=== PATIENT | male | born 1980 | race Caucasian/White ===

== ENCOUNTER 2018-09-27 11:00 | Emergency (ER) | payer OTHER ==
[~2018-09-27] VITALS: Ht 180.3 cm; Wt 77.1 kg
[~2018-09-27 11:00] MED LIST: ACETAMINOPHEN; ALBU.083IS INH; ALBU90I INH; ALBU90OI; ALBU90OI INH; AZIT250 PO; AZIT500; AZIT500 PO; BENZ100A PO; BUTASPCAF PO; CARB200 PO; CEFU50SU; CEFU50SU PO; CEPH500 PO; CIPR500; CIPR500 PO; CLAR500 PO; CLIN150; CLIN150 PO; CLIN300; CLIN300 PO; CODGUAEL PO; CRUTCH4 USE; CYCL10 PO; DIPH50 PO; DOC250 PO; DOXY100 PO; ERYT333ERA PO; ERYT500 PO; FAMO20 PO; FEXPSEER PO; FLUT.05NI; GUAI600T33 PO; GUAPHELA PO; HYDACE10B PO; HYDACE5 PO; HYDACE7.5 PO; HYDCOR2.5C PR; HYDGUAL120 PO; HYDHCL25 PO; IBUHYD PO; IBUP200; IBUP400; IBUP600 PO; IBUP800; IBUP800 PO; IBUPROFEN; KETO10 PO; LORA10ER PO; MAGCIT300 PO; METPRE4DP PO; MOMENI; NAPR500 PO; NAPR550 PO; NICO21TP TOP; NYST100SU MT; OMEP20ER PO; OMEPRAZOLE MAGN20 MG PO; ONDA4ODT MM; OXYACE5T PO; OXYACE7.5T PO; OXYM.05NI; PANT40 PO; PRAHYD1AE TOP; PRED10 PO; PRED20 PO; PROACE100 PO; PROCODE120 PO; PROM25 PO; PROM50S PR; PROM6.25SY PO; PSECHLCR PO; Prilosec Otc20 MG PO; RANI150 PO; RXCEPH500 PO; RXCLIN PO; RXCYCL10 PO; RXHYDACE PO; RXNAPNA550 PO; RXONDA4ODT MM; RXOXYACE PO; RXPRED10 PO; RXPROACE PO; RXPROCODSY PO; RXPROM25 PO; RXSULTRIDS PO; RXTRAM50 PO; Ranitidine HCl300 M1 PO; Robaxin500 MG PO; SULTRIDS PO; TAMS.4ER PO; TRAM50 PO; TYLENOL COUGH & COLD; Vibramycin100 MG PO; Zantac150 MG PO; Zithromax250 MG PO; Zofran Odt4 MG SL
[2018-09-27] MEDS ORDERED: Naprosyn500 MG PO (11:28)
[2018-09-27] MEDS ORDERED: Cleocin HCl300 MG PO (11:28)
== END 2018-09-27 11:32 | disposition home or self-care (01) ==
LOC: ER 11:00
DX: K04.7 Periapical abscess without sinus (principal); K02.9 Dental caries, unspecified; Z88.0 Allergy status to penicillin; Z88.5 Allergy status to narcotic agent; Z91.030 Bee allergy status; Z87.891 Personal history of nicotine dependence
CPT/HCPCS: 99282

== ENCOUNTER 2018-09-27 22:59 | Emergency (ER) | payer OTHER ==
[~2018-09-27] VITALS: Ht 180.3 cm; Wt 77.1 kg
[~2018-09-27 22:59] MED LIST changes: +Cleocin HCl300 MG PO; +Naprosyn500 MG PO
== END 2018-09-28 00:45 | disposition home or self-care (01) ==
LOC: ER 22:59
DX: K02.9 Dental caries, unspecified (principal); Z91.030 Bee allergy status; Z88.0 Allergy status to penicillin; Z88.5 Allergy status to narcotic agent; Z79.899 Other long term (current) drug therapy; G43.909 Migraine, unspecified, not intractable, without status migrainosus
CPT/HCPCS: 99282

== ENCOUNTER 2019-02-27 00:35 | Emergency (ER) | payer OTHER ==
[~2019-02-27] VITALS: Ht 180.3 cm; Wt 86.2 kg
[2019-02-27] MEDS ORDERED: Augmentin 875-1 EACH PO (03:53)
[2019-02-27] MEDS ORDERED: AZIT250 PO (03:53)
[2019-02-27] MEDS ORDERED: BENZ100A PO (04:32)
== END 2019-02-27 05:33 | disposition home or self-care (01) ==
LOC: ER 00:35
DX: J02.9 Acute pharyngitis, unspecified (principal); J34.89 Other specified disorders of nose and nasal sinuses; Z91.030 Bee allergy status; Z88.0 Allergy status to penicillin; Z88.5 Allergy status to narcotic agent; Z79.899 Other long term (current) drug therapy; G43.909 Migraine, unspecified, not intractable, without status migrainosus; Z87.891 Personal history of nicotine dependence
CPT/HCPCS: 71046; 87081; 87430; 99283-25; J1885

== ENCOUNTER → 2019-09-01 | Outpatient (CLI) | payer OTHER ==
[~2019-09-01] MED LIST changes: +Augmentin 875-1 EACH PO
== END ==
LOC: LAB EV 17:00 → LAB SHORT 17:00
PROVIDERS: Emergency Medicine
DX: K21.9 Gastro-esophageal reflux disease without esophagitis (principal)
CPT/HCPCS: 86677

== ENCOUNTER 2021-06-25 20:26 | Emergency (ER) | payer OTHER ==
[~2021-06-25] VITALS: Ht 180.3 cm; Wt 90.7 kg
[2021-06-25 20:57] LABS: BASOPHILS ABSOLUTE AUTO 0.04 K/mm3 (0.00-0.23); BASOPHILS PERCENT AUTO 0 % (0-2); EOSINOPHILS ABSOLUTE AUTO 0.65 K/mm3 (0.00-0.68); EOSINOPHILS PERCENT AUTO 7 % (0-6); Hematocrit 50.8 % (37.0-53.0); Hemoglobin 17.3 g/dL (13.5-17.5); IMMATURE GRAN ABSOLUTE AUTO 0.03 K/mm3 (0.00-0.10); IMMATURE GRAN PERCENT AUTO 0 % (0-1); LYMPHOCYTES ABSOLUTE AUTO 2.62 K/mm3 (0.84-5.20); LYMPHOCYTES PERCENT AUTO 28 % (21-46); MONOCYTES ABSOLUTE AUTO 0.75 K/mm3 (0.16-1.47); MONOCYTES PERCENT AUTO 8 % (4-13); Mean Corpuscular HGB 29.2 pg (26.0-34.0); Mean Corpuscular HGB Conc 34.1 g/dL (31.5-36.5); Mean Corpuscular Volume 86 fL (80-100); Mean Platelet Volume 10.7 fL (9.1-12.4); NEUTROPHILS ABSOLUTE AUTO 5.34 K/mm3 (1.96-9.15); NEUTROPHILS PERCENT AUTO 57 % (41-73); Platelet Count 279 K/mm3 (150-400); RDW Coefficient Variation 12.2 % (11.7-14.2); RDW Standard Deviation 38.6 fL (35.1-46.3); Red Blood Cell Count 5.93 M/mm3 (4.30-5.90); White Blood Cell Count 9.43 K/mm3 (4.00-11.30)
[2021-06-25 21:39] LABS: Alanine Aminotransfer (ALT/SGP 51 U/L (12-78); Albumin, Blood 4.1 g/dL (3.4-5.0); Alk Phos 83 U/L (50-136); Anion Gap 7 mmol/L (6-16); Aspartate Aminotrans (AST/SGOT 29 U/L (12-37); Bilirubin, Total 0.3 mg/dL (0.1-1.0); Blood Urea Nitrogen 15 mg/dL (8-24); CO2, Blood 24 mmol/L (21-32); Calcium, Blood 9.7 mg/dL (8.5-10.1); Chloride, Blood 107 mmol/L (98-108); Creatinine, Blood 0.88 mg/dL (0.60-1.20); Globulin, Blood 4.1 g/dL (2.2-4.0); Glomerular Filtration Rate >60 (60-); Glucose, Blood 122 mg/dL (70-99); Potassium, Blood 3.7 mmol/L (3.5-5.5); Sodium, Blood 138 mmol/L (136-145); Total Protein, Blood 8.2 g/dL (6.4-8.2); Troponin I <0.015 ng/mL (0.000-0.040)
[2021-06-25] MEDS ORDERED: METO25ER PO (22:15)
[2021-06-25] MEDS ORDERED: ESOM20 PO (22:16)
[2021-06-25] MEDS ORDERED: NASONEX17 G1 (22:16)
== END 2021-06-25 22:25 | disposition home or self-care (01) ==
LOC: ER 20:26
PROVIDERS: Physician Assistant
DX: R00.2 Palpitations (principal); R00.0 Tachycardia, unspecified; R07.89 Other chest pain; R06.02 Shortness of breath; Z88.0 Allergy status to penicillin; Z91.030 Bee allergy status; Z88.6 Allergy status to analgesic agent
CPT/HCPCS: 36415; 71045; 80053; 83735; 84443; 84484; 85025; 93005; 93010; 99285-25

== ENCOUNTER → 2022-05-05 | Outpatient (CLI) | payer OTHER ==
[~2022-05-05] MED LIST changes: +ALPR1 PO; +ESOM20 PO; +METO25ER PO; +NASONEX17 G1
[2022-05-05 16:31] LABS: BASOPHILS ABSOLUTE AUTO 0.04 K/mm3 (0.00-0.23); BASOPHILS PERCENT AUTO 1 % (0-2); EOSINOPHILS ABSOLUTE AUTO 0.38 K/mm3 (0.00-0.68); EOSINOPHILS PERCENT AUTO 5 % (0-6); Hematocrit 48.9 % (37.0-53.0); IMMATURE GRAN ABSOLUTE AUTO 0.04 K/mm3 (0.00-0.10); IMMATURE GRAN PERCENT AUTO 1 % (0-1); LYMPHOCYTES ABSOLUTE AUTO 1.69 K/mm3 (0.84-5.20); LYMPHOCYTES PERCENT AUTO 21 % (21-46); MONOCYTES ABSOLUTE AUTO 0.66 K/mm3 (0.16-1.47); MONOCYTES PERCENT AUTO 8 % (4-13); Mean Corpuscular HGB 30.4 pg (26.0-34.0); Mean Corpuscular HGB Conc 34.8 g/dL (31.5-36.5); Mean Corpuscular Volume 87 fL (80-100); Mean Platelet Volume 10.8 fL (9.1-12.4); NEUTROPHILS ABSOLUTE AUTO 5.38 K/mm3 (1.96-9.15); NEUTROPHILS PERCENT AUTO 66 % (41-73); Platelet Count 239 K/mm3 (150-400); RDW Coefficient Variation 12.8 % (11.7-14.2); RDW Standard Deviation 40.6 fL (35.1-46.3); White Blood Cell Count 8.19 K/mm3 (4.00-11.30)
[2022-05-05 16:44] LABS: Albumin, Blood 3.7 g/dL (3.4-5.0); Albumin/Globulin Ratio 0.9 (0.8-1.8); Bilirubin, Total 0.3 mg/dL (0.1-1.0); Bun/Creatinine Ratio 12.5 (12.0-20.0); Calcium, Blood 9.1 mg/dL (8.5-10.1); Creatinine, Blood 0.96 mg/dL (0.60-1.20); Globulin, Blood 3.9 g/dL (2.2-4.0); Potassium, Blood 3.7 mmol/L (3.5-5.5); Total Protein, Blood 7.6 g/dL (6.4-8.2)
== END ==
LOC: LAB 16:27 → LAB SHORT 16:27
PROVIDERS: General Practice
DX: K92.89 Other specified diseases of the digestive system (principal)
CPT/HCPCS: 80053; 82550; 84484; 85025

== ENCOUNTER 2023-06-09 16:42 | Inpatient (IN) | payer OTHER ==
[~2023-06-09] VITALS: Ht 180.3 cm; Wt 94.8 kg
[2023-06-09] VITALS (20 sets, daily range): BP systolic 121–150; BP diastolic 79–98
[2023-06-09 17:00] LABS: Calcium, Ionized (POC) 1.15 mmol/L (1.10-1.46); Chloride (POC) 102 mmol/L (98-108); Glucose (ISTAT POC) 132 mg/dL (70-99); Potassium (POC) 3.1 mmol/L (3.5-5.5); Sodium (POC) 140 mmol/L (135-148); Total CO2 (POC) 28 mmol/L (21-32)
[2023-06-09 17:05] LABS: BASOPHILS ABSOLUTE AUTO 0.07 K/mm3 (0.00-0.23); BASOPHILS PERCENT AUTO 1 % (0-2); EOSINOPHILS ABSOLUTE AUTO 0.63 K/mm3 (0.00-0.68); EOSINOPHILS PERCENT AUTO 5 % (0-6); Hematocrit 45.3 % (37.0-53.0); Hemoglobin 15.7 g/dL (13.5-17.5); IMMATURE GRAN ABSOLUTE AUTO 0.11 K/mm3 (0.00-0.10); IMMATURE GRAN PERCENT AUTO 1 % (0-1); LYMPHOCYTES ABSOLUTE AUTO 4.25 K/mm3 (0.84-5.20); LYMPHOCYTES PERCENT AUTO 34 % (21-46); MONOCYTES ABSOLUTE AUTO 1.04 K/mm3 (0.16-1.47); MONOCYTES PERCENT AUTO 8 % (4-13); Mean Corpuscular HGB 29.9 pg (26.0-34.0); Mean Corpuscular HGB Conc 34.7 g/dL (31.5-36.5); Mean Corpuscular Volume 86 fL (80-100); Mean Platelet Volume 10.1 fL (9.1-12.4); NEUTROPHILS PERCENT AUTO 52 % (41-73); Platelet Count 299 K/mm3 (150-400); RDW Coefficient Variation 12.5 % (11.7-14.2); RDW Standard Deviation 39.3 fL (35.1-46.3); Red Blood Cell Count 5.25 M/mm3 (4.30-5.90)
[2023-06-09 17:38] LABS: Albumin, Blood 3.9 g/dL (3.4-5.0); Albumin/Globulin Ratio 1.1 (0.8-1.8); Bilirubin, Total 0.3 mg/dL (0.1-1.0); Bun/Creatinine Ratio 15.1 (12.0-20.0); Calcium, Blood 9.1 mg/dL (8.5-10.1); Creatinine, Blood 0.93 mg/dL (0.60-1.20); Globulin, Blood 3.6 g/dL (2.2-4.0); Potassium, Blood 3.1 mmol/L (3.5-5.5); Total Protein, Blood 7.5 g/dL (6.4-8.2)
[2023-06-09] MEDS ORDERED: Prednisone10 MG PO (19:34)
[2023-06-09] MEDS ORDERED: DIAZ5 PO (19:38)
[2023-06-09 19:52] LABS: International Normalized Ratio 0.97; Prothrombin Time Results 10.2 Sec (9.7-11.5)
--- NOTE | 2023-06-09 21:06 | NUR ---
ARRIVAL TO ICU: PT ARRIVED TO ICU FROM [facility] AT 1843 VIA ICU BED. PT ALERT AND ORIENTED TO TIME, PERSON, PLACE AND SITUATION. ABLE TO ANSWER QUESTIONS AND MAKE NEEDS KNOWN. BREATH SOUNDS CLEAR IN ALL LOBES. NO C/O SOB. CARDIAC MONITORING SHOWS SINUS RHYTHM WITH RATE IN THE 80'S-90'S. SBP 140'S. DENIES CHEST PAIN OR PRESSURE. TR BAND IN PLACE IN RIGHT WRIST CURRENTLY WITH 11 ML'S AIR IN [place]. NO SIGNS OF BLEEDING OR OOZING AT THIS TIME. ARM BOARD IN PLACE WITH REMINDERS TO NOT USE ARM. NORMAL SALINE INFUSING IN RIGHT FOREARM PIV AT 200 ML/HR. PIV TO LAC SALINE LOCKED. ABLE TO VOID IN URINAL INDEPENDENTLY, YELLOW URINE. FAMILY AT BEDISDE AND UPDATED TO PLAN OF CARE. POTASSIUM 3.1, CALL PLACED TO DR. PEDROZA WITH ORDERS TO REPLACE PO.
[2023-06-10] VITALS (36 sets, daily range): BP systolic 108–159; BP diastolic 66–116
--- NOTE | 2023-06-10 01:13 | NUR ---
TR BAND REMOVAL: STARTED DEFLATING BAND AT 2128- 2ML REMOVED. 2318-2ML REMOVED, 2148- 2ML REMOVED, 2158-2ML REMOVED, 2208-2ML REMOVED, 2218- 1ML REMOVED. BAND LEFT IN PLACE UNTIL 2318. REMOVED BAND AND PLACED TEGADERM WITH NEW ARMBOARD. NO BLEEDING, OOZING OR SIGN OF HEMATOMA. PT EDUCATED ON NOT USING HIS RIGHT WRIST.
[2023-06-10 03:20] LABS: BASOPHILS ABSOLUTE AUTO 0.03 K/mm3 (0.00-0.23); BASOPHILS PERCENT AUTO 0 % (0-2); EOSINOPHILS ABSOLUTE AUTO 0.03 K/mm3 (0.00-0.68); EOSINOPHILS PERCENT AUTO 0 % (0-6); Hematocrit 41.9 % (37.0-53.0); Hemoglobin 14.7 g/dL (13.5-17.5); IMMATURE GRAN ABSOLUTE AUTO 0.09 K/mm3 (0.00-0.10); IMMATURE GRAN PERCENT AUTO 1 % (0-1); LYMPHOCYTES ABSOLUTE AUTO 1.01 K/mm3 (0.84-5.20); LYMPHOCYTES PERCENT AUTO 8 % (21-46); MONOCYTES ABSOLUTE AUTO 0.89 K/mm3 (0.16-1.47); MONOCYTES PERCENT AUTO 7 % (4-13); Mean Corpuscular HGB 29.9 pg (26.0-34.0); Mean Corpuscular HGB Conc 35.1 g/dL (31.5-36.5); Mean Corpuscular Volume 85 fL (80-100); Mean Platelet Volume 10.2 fL (9.1-12.4); NEUTROPHILS ABSOLUTE AUTO 10.59 K/mm3 (1.96-9.15); NEUTROPHILS PERCENT AUTO 84 % (41-73); Platelet Count 248 K/mm3 (150-400); RDW Coefficient Variation 12.5 % (11.7-14.2); RDW Standard Deviation 38.9 fL (35.1-46.3); Red Blood Cell Count 4.91 M/mm3 (4.30-5.90); White Blood Cell Count 12.64 K/mm3 (4.00-11.30)
[2023-06-10 03:51] LABS: Albumin, Blood 3.6 g/dL (3.4-5.0); Albumin/Globulin Ratio 1.1 (0.8-1.8); Bilirubin, Total 0.6 mg/dL (0.1-1.0); Bun/Creatinine Ratio 17.8 (12.0-20.0); Calcium, Blood 8.9 mg/dL (8.5-10.1); Creatinine, Blood 0.73 mg/dL (0.60-1.20); Globulin, Blood 3.3 g/dL (2.2-4.0); Magnesium, Blood 2.2 mg/dL (1.6-2.4); Potassium, Blood 4.3 mmol/L (3.5-5.5); Total Protein, Blood 6.9 g/dL (6.4-8.2)
--- NOTE | 2023-06-10 05:35 | NUR ---
SHIFT SUMMARY: PT REMAINS ALERT AND ORIENTED TO TIME, PERSON, PLACE AND SITUATION. PLEASANT, CALM AND COOPERATIVE WITH ALL CARE. LUNG SOUNDS CLEAR, SPO2 >95% ON RA. CARDIAC MONITORING SHOWS SINUS RHYTHM WITH RATE IN THE 70'S. SBP 140'S. DENIES CHEST PAIN OR PRESSURE. DOES STATE THAT HE FEELS LIKE HE HAS ACID REFLUX WHICH IS NOT A NEW FEELING. NO BM T/O THE SHIFT. ABLE TO VOID IN THE URINAL INDEPENDENTLY. PIV IN LEFT AND RIGHT FOREARM, SALINE LOCKED AT THIS TIME. REMAINS AT THE BEDSIDE T/O THE NIGHT. UPDATED TO PLAN OF CARE. ABLE TO TAKE PO MEDICATION T/O THE SHIFT WITH NO COMPLAINTS. RIGHT RADIAL SITE SHOWS NO SIGNS OF HEMATOMA OR BLEEDING. ARMBOARD IN PLACE.
--- NOTE | 2023-06-10 12:04 | NUR ---
ASSSUMED CARE RECEIVED REPORT FROM STUDENT RN LOUIE AND ASSUMED CARE OF PT AT APPROX 12:00. PT A&OX4, IND, TOLERATING PO, VOIDING, NO C/O PAIN, AND ON TELE. PT HAS ARMBOARD AND TEGADERM DRESSING IN PLACE ON R FA FROM [facility] [employer] [facility], C/D/I. REVIEWED AND AGREE W/ PREVIOUS SHIFT ASSESSMENT.
--- NOTE | 2023-06-10 12:53 | NUR ---
Pt transferred to medical floor at approximately 1145. All personal belongings sent upstairs with patient. VS stable at time of transfer. Report given to medical floor RN.
--- NOTE | 2023-06-10 17:20 | NUR ---
SHIFT SUMMARY PT A&OX4, AMB IND, TOLERATING PO, VOIDING, ON TELE, AND DENIES PAIN. PLAN FOR DISCHARGE TOMORROW. CALL LIGHT WITHIN REACH AND PT ABLE TO MAKE NEEDS KNOWN.
[2023-06-11 03:11] VITALS: BP 105/72
[2023-06-11 05:09] LABS: BASOPHILS ABSOLUTE AUTO 0.04 K/mm3 (0.00-0.23); BASOPHILS PERCENT AUTO 0 % (0-2); EOSINOPHILS ABSOLUTE AUTO 0.44 K/mm3 (0.00-0.68); EOSINOPHILS PERCENT AUTO 5 % (0-6); Hemoglobin 15.1 g/dL (13.5-17.5); IMMATURE GRAN ABSOLUTE AUTO 0.11 K/mm3 (0.00-0.10); IMMATURE GRAN PERCENT AUTO 1 % (0-1); LYMPHOCYTES ABSOLUTE AUTO 2.64 K/mm3 (0.84-5.20); LYMPHOCYTES PERCENT AUTO 27 % (21-46); MONOCYTES ABSOLUTE AUTO 0.75 K/mm3 (0.16-1.47); MONOCYTES PERCENT AUTO 8 % (4-13); Mean Corpuscular HGB 30.1 pg (26.0-34.0); Mean Corpuscular HGB Conc 34.3 g/dL (31.5-36.5); Mean Corpuscular Volume 88 fL (80-100); Mean Platelet Volume 10.3 fL (9.1-12.4); NEUTROPHILS ABSOLUTE AUTO 5.73 K/mm3 (1.96-9.15); NEUTROPHILS PERCENT AUTO 59 % (41-73); Platelet Count 256 K/mm3 (150-400); RDW Coefficient Variation 12.8 % (11.7-14.2); RDW Standard Deviation 41.1 fL (35.1-46.3); Red Blood Cell Count 5.01 M/mm3 (4.30-5.90); White Blood Cell Count 9.71 K/mm3 (4.00-11.30)
--- NOTE | 2023-06-11 05:31 | NUR ---
Shift Summary Pt AOx4, independent in the room. He took a shower tonight and did some walking, he states he did not experience any shortness of breath or dizyness. No chest pain or pressure t/o shift. On tele running SR at 80. Pt was a bit hypotensive at the start of shift, held Metoprolol. His last BP this am was a bit hypotensive at 105/72. Family stayed in the room overnight. Pt slept well t/o the night.
[2023-06-11 05:46] LABS: Alanine Aminotransfer (ALT/SGP 75 U/L (12-78); Albumin, Blood 3.6 g/dL (3.4-5.0); Albumin/Globulin Ratio 1.1 (0.8-1.8); Alk Phos 69 U/L (50-136); Anion Gap 3 mmol/L (6-16); Aspartate Aminotrans (AST/SGOT 126 U/L (12-37); Bilirubin, Total 0.6 mg/dL (0.1-1.0); Blood Urea Nitrogen 15 mg/dL (8-24); Bun/Creatinine Ratio 16.3 (12.0-20.0); CHOL/HDL RATIO 5.3; CO2, Blood 29 mmol/L (21-32); Calcium, Blood 8.9 mg/dL (8.5-10.1); Chloride, Blood 107 mmol/L (98-108); Cholesterol 223 mg/dL (50-200); Creatinine, Blood 0.92 mg/dL (0.60-1.20); Globulin, Blood 3.2 g/dL (2.2-4.0); Glomerular Filtration Rate 107 (60-); Glucose, Blood 103 mg/dL (70-99); HDL Cholesterol 42 mg/dL (>39); LDL/HDL RATIO 3.4; Low Density Lipoprotein Chol 141 mg/dL (0-110); Potassium, Blood 4.1 mmol/L (3.5-5.5); Sodium, Blood 139 mmol/L (136-145); Total Protein, Blood 6.8 g/dL (6.4-8.2); Triglycerides 201 mg/dL (30-160); Very Low Density Lipoprot Chol 40 mg/dL (6-32)
[2023-06-11 07:31] VITALS: BP 107/74
[2023-06-11] MEDS ORDERED: ASPI81CH PO (09:59)
[2023-06-11] MEDS ORDERED: ATORVASTATIN CA80 M1 PO (09:59)
[2023-06-11] MEDS ORDERED: METO50 PO (10:00)
[2023-06-11] MEDS ORDERED: BRILINTA90 M1 PO (10:00)
--- NOTE | 2023-06-11 11:32 | NUR ---
DISCHARGE NOTE PT DISCHARGED HOME AT APPROX 11:25. PT AND SPOUSE PROVIDED W/ VERBAL AND WRITTEN DISCHARGE INSTRUCTIONS AND REPORTED UNDERSTANDING. PT A&OX4, VSS, AMB IND, DENIED PAIN, TOLERATING PO, AND VOIDING. BELONGINGS WERE RETURNED AND PT ESCOURTED OUT VIA W/C BY GENE IBRAHIM.
--- NOTE | 2023-06-11 13:52 | NUR ---
[facility] CALLED AND SAID THAT PATIENT'S INSURANCE WOULD NOT COVER BRIL[place]TA AND ASKED IF PLAVIX COULD BE USED INSTEAD. DR BANG NOTIFIED AND ORDERS RECEIVED TO CALL IN PLAVIX 600 MG PO X1 TODAY AND THEN 75MG PO DAILY STARTING TOMORROW. WILL CALL INTO [facility].
[2023-06-11] MEDS ORDERED: CLOPIDOGREL300 M1 PO (14:47)
[2023-06-11] MEDS ORDERED: CLOP75 PO (14:47)
== END 2023-06-11 11:28 | disposition home or self-care (01) | DRG 322 ==
LOC: ER 16:42 → ICUE 16:57 → MEDS 06-10 11:59 → ENPENDDIS 06-11 10:13 → MEDS 06-11 11:28
PROVIDERS: Emergency Medicine; Internal Medicine Cardiovascular Disease; ADMIT Internal Medicine Interventional Cardiology
PROC: 027135Z Dilation of Coronary Artery, Two Arteries with Two Drug-eluting Intraluminal Devices, Percutaneous Approach (ICD-10-PCS; principal; 2023-06-09)
PROC: B2111ZZ Fluoroscopy of Multiple Coronary Arteries using Low Osmolar Contrast (ICD-10-PCS; 2023-06-09)
PROC: B24BYZZ Ultrasonography of Heart with Aorta using Other Contrast (ICD-10-PCS; 2023-06-10)
DX: I21.02 ST elevation (STEMI) myocardial infarction involving left anterior descending coronary artery (principal); I25.82 Chronic total occlusion of coronary artery; I25.10 Atherosclerotic heart disease of native coronary artery without angina pectoris; I10 Essential (primary) hypertension; E87.6 Hypokalemia; Z88.0 Allergy status to penicillin; Z88.5 Allergy status to narcotic agent
CPT/HCPCS: 36415; 71045; 76937; 80047; 80053; 80061; 83735; 84484; 85014; 85025; 85610; 85730; 93005; 93010; 93454; 99152; 99153; 99285-25; A9270; C1725; C1769; C1874; C1887; C1894; C8929; C9600; C9606; J1644; J2250; J3010; J3246; J7030; J7050; Q9957; Q9967

== ENCOUNTER 2023-07-18 13:56 | Observation (INO) | payer OTHER ==
[~2023-07-18] VITALS: Ht 180.3 cm; Wt 89.4 kg
[~2023-07-18 13:56] MED LIST changes: +ASPI81CH PO; +ATORVASTATIN CA80 M1 PO; +BRILINTA90 M1 PO; +CLOP75 PO; +CLOPIDOGREL300 M1 PO; +DIAZ5 PO; +METO50 PO; +Prednisone10 MG PO
[2023-07-18 14:34] LABS: BASOPHILS ABSOLUTE AUTO 0.05 K/mm3 (0.00-0.23); BASOPHILS PERCENT AUTO 1 % (0-2); EOSINOPHILS ABSOLUTE AUTO 0.67 K/mm3 (0.00-0.68); EOSINOPHILS PERCENT AUTO 11 % (0-6); Hematocrit 44.8 % (37.0-53.0); Hemoglobin 15.4 g/dL (13.5-17.5); IMMATURE GRAN ABSOLUTE AUTO 0.01 K/mm3 (0.00-0.10); IMMATURE GRAN PERCENT AUTO 0 % (0-1); LYMPHOCYTES PERCENT AUTO 32 % (21-46); MONOCYTES ABSOLUTE AUTO 0.67 K/mm3 (0.16-1.47); MONOCYTES PERCENT AUTO 11 % (4-13); Mean Corpuscular HGB 29.4 pg (26.0-34.0); Mean Corpuscular HGB Conc 34.4 g/dL (31.5-36.5); Mean Corpuscular Volume 86 fL (80-100); NEUTROPHILS ABSOLUTE AUTO 2.64 K/mm3 (1.96-9.15); NEUTROPHILS PERCENT AUTO 44 % (41-73); Platelet Count 200 K/mm3 (150-400); RDW Coefficient Variation 11.9 % (11.7-14.2); RDW Standard Deviation 37.7 fL (35.1-46.3); Red Blood Cell Count 5.23 M/mm3 (4.30-5.90); White Blood Cell Count 5.94 K/mm3 (4.00-11.30)
[2023-07-18 14:53] LABS: Albumin, Blood 4.3 g/dL (3.4-5.0); Albumin/Globulin Ratio 1.3 (0.8-1.8); Bilirubin, Total 0.8 mg/dL (0.1-1.0); Bun/Creatinine Ratio 13.1 (12.0-20.0); Calcium, Blood 9.3 mg/dL (8.5-10.1); Creatinine, Blood 0.84 mg/dL (0.60-1.20); Globulin, Blood 3.4 g/dL (2.2-4.0); Potassium, Blood 3.6 mmol/L (3.5-5.5); Total Protein, Blood 7.7 g/dL (6.4-8.2)
--- NOTE | 2023-07-18 17:41 | NUR ---
REPORT FROM [facility] ON THIS PATIENT. WILL WAIT FOR REPEAT TROPONIN PRIOR TO HIM COMING TO MED FLOOR.
[2023-07-18 18:27] VITALS: BP 141/87
[2023-07-18] MEDS ORDERED: METO25ER PO (18:30)
[2023-07-18] MEDS ORDERED: DIAZ5 PO (19:34)
[2023-07-18] MEDS ORDERED: OMEP20ER PO (19:35)
[2023-07-18] MEDS ORDERED: TICA90TA PO (19:36)
[2023-07-19 02:00] VITALS: BP 112/76
--- NOTE | 2023-07-19 06:40 | NUR ---
SHIFT PARESH, PT RESTING IN BED, PTS AT BEDSIDE. PT DENIES ANY CHEST ARM OR JAW PAIN. PT LEFT UNIT WITH EARLYIER LAST NOC. PT AND TOLD PT TO PLEASE NOT LEAVE UNIT PT HERE FOR CARDIAC ISSUES. PT AGREED. CALL LIGHT IN REACH.
[2023-07-19 07:23] VITALS: BP 125/77
== END 2023-07-19 12:11 | disposition home or self-care (01) ==
LOC: ER 13:56 → MEDS 13:57 → ENPENDDIS 07-19 11:03 → MEDS 07-19 12:11
PROVIDERS: Physician Assistant; ADMIT Internal Medicine
DX: R79.89 Other specified abnormal findings of blood chemistry (principal); I25.2 Old myocardial infarction; E78.5 Hyperlipidemia, unspecified; F41.9 Anxiety disorder, unspecified; J33.9 Nasal polyp, unspecified; R07.89 Other chest pain
CPT/HCPCS: 36415; 71045; 80053; 83690; 83735; 83880; 84484; 85025; 93005; 93010; A9270

== ENCOUNTER 2023-08-15 20:09 | Emergency (ER) | payer OTHER ==
[~2023-08-15] VITALS: Ht 180.3 cm; Wt 86.2 kg
[~2023-08-15 20:09] MED LIST changes: +TICA90TA PO
[2023-08-15 20:50] LABS: BASOPHILS ABSOLUTE AUTO 0.04 K/mm3 (0.00-0.23); BASOPHILS PERCENT AUTO 1 % (0-2); EOSINOPHILS ABSOLUTE AUTO 0.52 K/mm3 (0.00-0.68); EOSINOPHILS PERCENT AUTO 8 % (0-6); Hematocrit 41.8 % (37.0-53.0); Hemoglobin 14.5 g/dL (13.5-17.5); IMMATURE GRAN ABSOLUTE AUTO 0.01 K/mm3 (0.00-0.10); IMMATURE GRAN PERCENT AUTO 0 % (0-1); LYMPHOCYTES ABSOLUTE AUTO 1.99 K/mm3 (0.84-5.20); LYMPHOCYTES PERCENT AUTO 29 % (21-46); MONOCYTES ABSOLUTE AUTO 0.67 K/mm3 (0.16-1.47); MONOCYTES PERCENT AUTO 10 % (4-13); Mean Corpuscular HGB Conc 34.7 g/dL (31.5-36.5); Mean Corpuscular Volume 87 fL (80-100); Mean Platelet Volume 10.9 fL (9.1-12.4); NEUTROPHILS ABSOLUTE AUTO 3.63 K/mm3 (1.96-9.15); NEUTROPHILS PERCENT AUTO 53 % (41-73); Platelet Count 199 K/mm3 (150-400); RDW Coefficient Variation 12.1 % (11.7-14.2); RDW Standard Deviation 38.1 fL (35.1-46.3); Red Blood Cell Count 4.83 M/mm3 (4.30-5.90); White Blood Cell Count 6.86 K/mm3 (4.00-11.30)
[2023-08-15 21:14] LABS: Albumin, Blood 4.2 g/dL (3.4-5.0); Albumin/Globulin Ratio 1.2 (0.8-1.8); Bilirubin, Total 0.8 mg/dL (0.1-1.0); Bun/Creatinine Ratio 14.3 (12.0-20.0); Creatinine, Blood 0.84 mg/dL (0.60-1.20); Globulin, Blood 3.4 g/dL (2.2-4.0); Potassium, Blood 3.7 mmol/L (3.5-5.5); Total Protein, Blood 7.6 g/dL (6.4-8.2)
[2023-08-15 22:34] LABS: Thyroid Stimulating Hormone 2.37 uIU/mL (0.360-4.800)
[2023-08-15 23:00] VITALS: BP 125/81
== END 2023-08-15 23:10 | disposition home or self-care (01) ==
LOC: ER 20:09
PROVIDERS: Physician Assistant
DX: F41.9 Anxiety disorder, unspecified (principal); I10 Essential (primary) hypertension; G43.909 Migraine, unspecified, not intractable, without status migrainosus; I25.2 Old myocardial infarction; F17.210 Nicotine dependence, cigarettes, uncomplicated; Z79.82 Long term (current) use of aspirin; Z79.02 Long term (current) use of antithrombotics/antiplatelets; Z79.899 Other long term (current) drug therapy; Z88.0 Allergy status to penicillin; Z88.5 Allergy status to narcotic agent; Z91.030 Bee allergy status
CPT/HCPCS: 80053; 84443; 84484; 85025; 93005; 93010; 99285-25

== ENCOUNTER → 2024-08-14 | Outpatient (CLI) | payer OTHER | LOC: LAB 08:53 → LAB SHORT 08:53 | DX: J02.9 Acute pharyngitis, unspecified (principal) | CPT/HCPCS: 87081 ==

== ENCOUNTER 2024-12-12 23:14 | Emergency (ER) | payer OTHER ==
[~2024-12-12] VITALS: Ht 180.3 cm; Wt 90.7 kg
[2024-12-12 23:42] LABS: BASOPHILS ABSOLUTE AUTO 0.04 K/mm3 (0.00-0.23); BASOPHILS PERCENT AUTO 1 % (0-2); EOSINOPHILS ABSOLUTE AUTO 0.33 K/mm3 (0.00-0.68); EOSINOPHILS PERCENT AUTO 5 % (0-6); Hematocrit 44.5 % (37.0-53.0); IMMATURE GRAN ABSOLUTE AUTO 0.01 K/mm3 (0.00-0.10); IMMATURE GRAN PERCENT AUTO 0 % (0-1); LYMPHOCYTES ABSOLUTE AUTO 2.13 K/mm3 (0.84-5.20); LYMPHOCYTES PERCENT AUTO 30 % (21-46); MONOCYTES ABSOLUTE AUTO 0.77 K/mm3 (0.16-1.47); MONOCYTES PERCENT AUTO 11 % (4-13); Mean Corpuscular HGB 29.9 pg (26.0-34.0); Mean Corpuscular HGB Conc 33.7 g/dL (31.5-36.5); Mean Corpuscular Volume 89 fL (80-100); Mean Platelet Volume 10.7 fL (9.1-12.4); NEUTROPHILS ABSOLUTE AUTO 3.84 K/mm3 (1.96-9.15); NEUTROPHILS PERCENT AUTO 54 % (41-73); Platelet Count 214 K/mm3 (150-400); RDW Coefficient Variation 12.1 % (11.7-14.2); RDW Standard Deviation 39.3 fL (35.1-46.3); Red Blood Cell Count 5.02 M/mm3 (4.30-5.90); White Blood Cell Count 7.12 K/mm3 (4.00-11.30)
[2024-12-13 00:03] LABS: Albumin, Blood 4.1 g/dL (3.4-5.0); Albumin/Globulin Ratio 1.3 (0.8-1.8); Bilirubin, Total 0.4 mg/dL (0.1-1.0); Bun/Creatinine Ratio 17.2 (12.0-20.0); Calcium, Blood 8.8 mg/dL (8.5-10.1); Creatinine, Blood 0.87 mg/dL (0.60-1.20); Globulin, Blood 3.2 g/dL (2.2-4.0); Potassium, Blood 3.4 mmol/L (3.5-5.5); Total Protein, Blood 7.3 g/dL (6.4-8.2)
[2024-12-13 02:07] VITALS: BP 139/74
== END 2024-12-13 02:56 | disposition home or self-care (01) ==
LOC: ER 23:14
PROVIDERS: Emergency Medicine
DX: R07.89 Other chest pain (principal); F17.210 Nicotine dependence, cigarettes, uncomplicated; I10 Essential (primary) hypertension; E78.5 Hyperlipidemia, unspecified; K21.9 Gastro-esophageal reflux disease without esophagitis; Z91.038 Other insect allergy status; Z88.0 Allergy status to penicillin; Z88.5 Allergy status to narcotic agent; Z79.899 Other long term (current) drug therapy; Z79.890 Hormone replacement therapy; Z79.891 Long term (current) use of opiate analgesic; Z79.1 Long term (current) use of non-steroidal anti-inflammatories (NSAID); Z79.51 Long term (current) use of inhaled steroids; Z79.83 Long term (current) use of bisphosphonates
CPT/HCPCS: 71046; 80053; 84484; 85025; 93005; 93010; 99285-25